=== PATIENT | female | born 1965 | race Caucasian/White ===

== ENCOUNTER → 2018-01-31 | Outpatient (CLI) | payer OTHER ==
--- NOTE | 2018-01-31 14:58 | RADRPT ---
EXAM DATE: 01/31/2018 2:49 PM EDT AGE/SEX: 52 years / Female INDICATIONS: Tremors with left side weakness and unsteady gait since August. CLINICAL DATA: This is the patient's sequela encounter. Patient reports that signs and symptoms have been present for 4 - 6 months and indicates a pain score of 0/10. MEDICAL/SURGICAL HISTORY: Hypertension. Breast augmentation. Uterine ablation. COMPARISON: No prior exams available for comparison. DOSE: 5.1 mCi Ioflupane Iodine-123 in 2.5ml total volume. MEDICATION(S): 130 mg Potasium Iodine PO one hour prior to injection. IMAGING: SPECT/CT imaging with fusion was performed. SPECT IMAGIN.5 hours RADIATION DOSE: 30.27 CTDIvol(mGy) TECHNIQUE: SPECT imaging of the brain was performed in sagittal, axial and coronal planes. Attenuati on correction was performed with computed tomography and both the attenuation correction and non-atte nuation corrected data sets were reviewed. FINDINGS: Asymmetric, misshapen areas of striatal uptake present. CONCLUSION: Abnormal study Electronically signed by: Henry Schultz MD 01/31/2018 2:57 PM EDT
== END ==
LOC: HRAD 09:08
PROVIDERS: ATTEND Specialist
DX: R25.1 Tremor, unspecified (principal)
CPT/HCPCS: 78607; A9584